=== PATIENT | male | born 1990 | race Caucasian/White ===

== ENCOUNTER 2020-11-20 18:56 | Emergency (ER) | payer SELFPAY ==
[~2020-11-20] VITALS: Ht 175.3 cm; Wt 81.6 kg
[2020-11-20 19:25] VITALS: BP_SYST 143
--- NOTE | 2020-11-20 20:00 | NUR ---
Patient walked out, did not want to continue with MSE. Patient left without being seen. No further treatment provided. ER MD aware
== END 2020-11-20 20:00 | disposition left against medical advice (07) ==
LOC: SED 18:56
DX: T15.92XA Foreign body on external eye, part unspecified, left eye, initial encounter (principal); X58.XXXA Exposure to other specified factors, initial encounter; Y93.89 Activity, other specified; Y92.89 Other specified places as the place of occurrence of the external cause; Y99.8 Other external cause status; Z53.21 Procedure and treatment not carried out due to patient leaving prior to being seen by health care provider